=== PATIENT | female | born 1955 | race Caucasian/White ===

== ENCOUNTER 2016-10-15 19:05 | Emergency (ER) | payer BC ==
--- NOTE | 2016-10-15 20:17 | Emergency Department Record ---
History of Present Illness - General Chief Complaint: Cough Stated Complaint: CHEST CONGESTION Time Seen by Provider: 10/15/16 20:07 Source: Patient Mode of Arrival: Ambulatory Limitations: No limitations - History of Present Illness Initial Comments: pt has been sick for a month with ear infection for which she got antibiotics and has now developed a cough that is productive. she thinks she has bronchitis as she had it before. she thinks she had a fever this morning. she denies sob, body aches or other symptoms MD Complaint: Cough, Nasal congestion Onset/Timin -: Days(s) Consistency: Getting worse Improves With: Nothing Worsens With: Nothing Associated Symptoms: Cough, Fever - Related Data Previous Rx's Medication Instructions Recorded Azithromycin [Zithromax] 250 mg PO DAILY #4 tab 10/15/16 Benzonatate [Tessalon] 1 cap PO Q8H PRN #14 cap 10/15/16 Allergies Allergy/AdvReac Type Severity Reaction Status Date / Time Sulfa (Sulfonamide Allergy RASH Unverified 09/13/16 08:45 Antibiotics) Travel Screening - Travel/Exposure Within Last 30 Days Have you traveled within the last 30 days?: No Past Medical History - SOCIAL HISTORY Smoking Status: Never smoker Alcohol Use: None - RESPIRATORY Hx Respiratory Disorders: Yes Hx Bronchitis: Yes (hx) - CARDIOVASCULAR Hx Cardio Disorders: No - NEURO Hx Neuro Disorders: No - GI Hx GI Disorders: No - Hx Genitourinary Disorders: No - ENDOCRINE Hx Endocrine Disorders: No - MUSCULOSKELETAL Hx Musculoskeletal Disorders: No - PSYCH Hx Psych Problems: No - HEMATOLOGY/ONCOLOGY Hx Hematology/Oncology Disorders: No Family Medical History Any Significant Family History?: Yes Hx Diabetes: Brother/Sister Hx Heart Disease: Father Course Vital Signs 10/15/16 19:50 Temperature 99.7 F H Pulse Rate [ 101 H Pulse Ox Probe] Respiratory 18 Rate Blood Pressure 166/88 [Left Arm] Pulse Ox 93 L Medical Decision Making - Management Options MDM Management: Additional Work-up Planned (e.g. ADM/Transfer/OP Study) - Data Complexity MDM Data: X-Ray Ordered and/or Reviewed - Radiology Data Radiology results: Report reviewed, Image reviewed Disposition Disposition: Discharge Clinical Impression: Bronchitis Disposition: Home, Self-Care Condition: (1) Good Instructions: Acute Bronchitis (ED) Additional Instructions: follow uo with family doctor. return sooner if worse. Prescriptions: Benzonatate [Tessalon] 1 cap PO Q8H PRN #14 cap PRN Reason: Cough Azithromycin [Zithromax] 250 mg PO DAILY #4 tab Forms: Patient Portal Access
[2016-10-15] MEDS ORDERED: AZITHROMYCIN 500 MG TABLET PO ONE (20:50)
[2016-10-15] MEDS ORDERED: PROMETHAZINE W/CODEINE 10ML UD PO ONE ×2 (20:51→20:57)
--- NOTE | 2016-10-19 03:50 | Emergency Department Record ---
History of Present Illness - General Chief Complaint: Cough Stated Complaint: CHEST CONGESTION Time Seen by Provider: 10/15/16 20:07 Source: Patient Mode of Arrival: Ambulatory Limitations: No limitations - History of Present Illness Onset/Timin -: Days(s) Consistency: Getting worse Improves With: Nothing Worsens With: Nothing Associated Symptoms: Cough, Fever - Related Data Previous Rx's Medication Instructions Recorded Azithromycin [Zithromax] 250 mg PO DAILY #4 tab 10/15/16 Benzonatate [Tessalon] 1 cap PO Q8H PRN #14 cap 10/15/16 Allergies Allergy/AdvReac Type Severity Reaction Status Date / Time Sulfa (Sulfonamide Allergy RASH Unverified 09/13/16 08:45 Antibiotics) Travel Screening - Travel/Exposure Within Last 30 Days Have you traveled within the last 30 days?: No Review of Systems Reviewed: No additional complaints except as noted below Constitutional: Reports: As per HPI. Denies: Chills, Fever, Malaise, Night sweats, Weakness, Weight change Eyes: Reports: As per HPI. Denies: Eye discharge, Eye pain, Photophobia, Vision change ENT: Reports: As per HPI. Denies: Congestion, Dental pain, Ear pain, Epistaxis , Hearing loss, Throat pain Respiratory: Reports: As per HPI. Denies: Cough, Dyspnea, Hemoptysis, Stridor, Wheezes Cardiovascular: Reports: As per HPI. Denies: Arrhythmia, Chest pain, Dyspnea on exertion, Edema, Murmurs, Orthopnea, Palpitations, Paroxysmal nocturnal dyspnea, Rheumatic Fever, Syncope Endocrine: Reports: As per HPI. Denies: Fatigue, Heat or cold intolerance, Polydipsia, Polyuria Gastrointestinal: Reports: As per HPI. Denies: Abdominal pain, Constipation, Diarrhea, Hematemesis, Hematochezia, Melena, Nausea, Vomiting Genitourinary: Reports: As per HPI. Denies: Abnormal menses, Discharge, Dyspareunia, Dysuria, Frequency, Hematuria, Incontinence, Retention, Urgency Musculoskeletal: Reports: As per HPI. Denies: Arthralgia, Back pain, Gout, Joint swelling, Myalgia, Neck pain Skin: Reports: As per HPI. Denies: Bruising, Change in color, Change in hair/ nails, Lesions, Pruritus, Rash Neurological: Reports: As per HPI. Denies: Abnormal gait, Confusion, Headache, Numbness, Paresthesias, Seizure, Tingling, Tremors, Vertigo, Weakness Psychiatric: Reports: As per HPI. Denies: Anxiety, Auditory hallucinations, Depression, Homicidal thoughts, Suicidal thoughts, Visual hallucinations Hematological/Lymphatic: Reports: As per HPI. Denies: Anemia, Blood Clots, Easy bleeding, Easy bruising, Swollen glands Past Medical History - SOCIAL HISTORY Smoking Status: Never smoker Alcohol Use: None - RESPIRATORY Hx Respiratory Disorders: Yes Hx Bronchitis: Yes (hx) - CARDIOVASCULAR Hx Cardio Disorders: No - NEURO Hx Neuro Disorders: No - GI Hx GI Disorders: No - Hx Genitourinary Disorders: No - ENDOCRINE Hx Endocrine Disorders: No - MUSCULOSKELETAL Hx Musculoskeletal Disorders: No - PSYCH Hx Psych Problems: No - HEMATOLOGY/ONCOLOGY Hx Hematology/Oncology Disorders: No Family Medical History Any Significant Family History?: Yes Hx Diabetes: Brother/Sister Hx Heart Disease: Father Physical Exam - General General Appearance: Alert, Oriented x3, Cooperative, Mild distress Limitations: No limitations - Head Head exam: Normal inspection - Eye Eye exam: Normal appearance, PERRL, EOMI Pupils: Normal accommodation - ENT ENT exam: Normal exam, Mucous membranes moist, Normal external ear exam, Normal orophraynx Ear exam: Normal external inspection. negative: External canal tenderness Nasal Exam: Normal inspection. negative: Discharge, Sinus tenderness Mouth exam: Normal external inspection, Tongue normal Teeth exam: Normal inspection. negative: Dental caries Throat exam: Normal inspection. negative: Tonsillar erythema, Tonsillar exudate - Neck Neck exam: Normal inspection, Full ROM. negative: Tenderness - Respiratory Respiratory exam: Normal lung sounds bilaterally. negative: Respiratory distress - Cardiovascular Cardiovascular Exam: Regular rate, Normal rhythm, Normal heart sounds - GI/Abdominal GI/Abdominal exam: Soft, Normal bowel sounds. negative: Tenderness - Rectal Rectal exam: Deferred - exam: Deferred - Extremities Extremities exam: Normal inspection, Full ROM, Normal capillary refill. negative: Tenderness - Back Back exam: Reports: Normal inspection, Full ROM. Denies: Muscle spasm, Rash noted, Tenderness - Neurological Neurological exam: Alert, Normal gait, Oriented X3, Reflexes normal - Psychiatric Psychiatric exam: Normal affect, Normal mood - Skin Skin exam: Dry, Intact, Normal color, Warm Course Vital Signs 10/15/16 10/15/16 19:50 21:01 Temperature 99.7 F H Pulse Rate 96 H Pulse Rate [ 101 H Pulse Ox Probe] Respiratory 18 18 Rate Blood Pressure 166/88 [Left Arm] Pulse Ox 93 L 93 L Disposition Clinical Impression: Bronchitis Disposition: Home, Self-Care Condition: (1) Good Instructions: Acute Bronchitis (ED) Additional Instructions: follow uo with family doctor. return sooner if worse. Prescriptions: Benzonatate [Tessalon] 1 cap PO Q8H PRN #14 cap PRN Reason: Cough Azithromycin [Zithromax] 250 mg PO DAILY #4 tab Forms: Patient Portal Access
--- NOTE | 2016-10-19 07:35 | RADIOLOGY REPORT ---
EXAM: CHEST, TWO VIEWS HISTORY: ACUTE COUGH TIMES FOUR DAYS. TECHNIQUE: Two views of the chest were provided without comparison examination. FINDINGS: The cardiomediastinal silhouette is within normal limits for size and contour. The vianey appear unremarkable. There is no radiographic evidence of a focal infiltrate or pleural effusion. No pneumothorax is noted. IMPRESSION: NO RADIOGRAPHIC EVIDENCE OF AN ACUTE INTRATHORACIC PROCESS. JOB NUMBER: [id number] MTDD
== END 2016-10-15 21:01 | disposition home or self-care (01) ==
LOC: ER 19:05
DX: J20.9 Acute bronchitis, unspecified (principal)
CPT/HCPCS: 71020; 99283

== ENCOUNTER 2017-11-16 09:16 | Day surgery (SDC) | payer BC ==
[2017-11-16] MEDS ORDERED: PROPOFOL 10 MG/ML VIAL IV ONE (09:17)
[2017-11-16] MEDS ORDERED: LIDOCAINE 2% MDV (20MG/ML) 20ML VIAL IV ONE (09:17)
[2017-11-16] MEDS ORDERED: MIDAZOLAM HCL 2MG/2ML VIAL IV ONE (09:17)
--- NOTE | 2017-11-19 09:50 | Operative Note ---
DATE OF SURGERY: 11/16/2017 SURGEON: Kimberlyn Pineda MD OPERATION: COLONOSCOPY. INDICATIONS: This is a 62-year-old female with average risk for colorectal cancer who presented for screening colonoscopy. POSTOPERATIVE DIAGNOSES: 1. A 6 mm sessile polyp in the cecum that was removed by cold snare. 2. Otherwise normal colon. ANESTHESIA: Sedation is per Anesthesia. Pulse oximetry was monitored throughout the procedure to maintain O2 saturation of 90% or greater. Supplemental oxygen was administered via nasal cannula. Cardiac and vital signs were monitored throughout the duration of the procedure, and they were stable. The procedure of colonoscopy and risks and alternatives of the procedure, including the risk of bleeding and perforation, among others, were explained to the patient who voiced understanding and agreed to have the procedure done. Physical examination was performed, and the patient was found stable for sedation. PROCEDURE: The patient was placed in the left lateral position. Sedation was initiated. A digital rectal exam was performed and showed some mild external hemorrhoids with no palpable rectal masses. An Olympus PCF-180AL colonoscope was then inserted into the rectum under direct visualization. It was advanced to the cecum without difficulty. The ileocecal valve and appendiceal orifice were identified and photographed. The colonic mucosa was carefully examined upon introduction of the colonoscope. There were no lesions noted. In the cecum was a 6 mm sessile polyp that was noted and was removed by cold snare. The ileocecal valve was intubated and terminal ileal mucosa was inspected for about 10 cm and it appeared normal. The colonoscope was then withdrawn while carefully examining the colonic mucosal surfaces. No other lesions were noted. In the rectum, retroflexion was performed and grade 1 internal hemorrhoids were noted. The colonoscope was then withdrawn and the procedure was terminated. The patient tolerated the procedure well without any immediate complications. She remained with stable vital signs and was transferred to the recovery room. RECOMMENDATIONS: 1. We will follow up on the histology of the polyp. 2. The patient is to have a repeat colonoscopy in 3 or 5 years depending on the histology of the polyp. Thank you for allowing me to participate in the care of your patient. CC: GRETA Nolan
== END 2017-11-16 11:15 | disposition home or self-care (01) ==
LOC: HOP 09:16
PROVIDERS: ATTEND Internal Medicine Gastroenterology
DX: Z12.11 Encounter for screening for malignant neoplasm of colon (principal); D12.0 Benign neoplasm of cecum; E11.9 Type 2 diabetes mellitus without complications; Z79.84 Long term (current) use of oral hypoglycemic drugs; E78.00 Pure hypercholesterolemia, unspecified; I10 Essential (primary) hypertension

== ENCOUNTER 2018-07-02 08:06 | Day surgery (SDC) | payer BC ==
[~2018-07-02 08:06] MED LIST: ACETAMINOPHEN 1,000 MG/100 ML BTL IV ONE
[2018-07-02] MEDS ORDERED: FENTANYL PF 100MCG/2ML VIAL IV ONE (08:07)
[2018-07-02] MEDS ORDERED: LIDOCAINE 2% MDV (20MG/ML) 20ML VIAL IV ONE (08:07)
[2018-07-02] MEDS ORDERED: DEXAMETHASONE 4 MG/ML 1ML VIAL IVP ONE (08:07)
[2018-07-02] MEDS ORDERED: PROPOFOL 10 MG/ML VIAL IV ONE (08:07)
[2018-07-02] MEDS ORDERED: ONDANSETRON HCL IV 4 MG/2 ML VIAL IVP ONE (08:07)
[2018-07-02] MEDS ORDERED: DESFLURANE 240 ML BTL INH ONE (08:07)
[2018-07-02] MEDS ORDERED: MIDAZOLAM HCL 2MG/2ML VIAL IV ONE (08:07)
--- NOTE | 2018-07-03 15:10 | Operative Note ---
DATE OF SURGERY: 07/02/2018 Surgeon: Vijay Rowland DO PREOPERATIVE DIAGNOSES: 1. Carpal tunnel syndrome of the right wrist. 2. Trigger finger of the right index finger. 3. Trigger finger of the right ring finger. POSTOPERATIVE DIAGNOSES: 1. Carpal tunnel syndrome of the right wrist. 2. Trigger finger of the right index finger. 3. Trigger finger of the right ring finger. OPERATION: 1. Decompression of right median nerve at the wrist using 3.5 loop magnification. 2. Tenotomy A1 obi right index finger. 3. Tenotomy A1 obi right ring finger. DESCRIPTION OF PROCEDURE: This 62-year-old female was taken to the operating room and placed in the supine position on the operating room table. General anesthesia was induced. The right upper extremity was elevated. It was prepped with Hibiclens and draped in the usual sterile fashion. It was exsanguinated and the tourniquet inflated to 250 mmHg. A palmar incision was utilized following the hypothenar crease from the level of the base of the web space of the thumb to the flexor crease of the wrist. Dissection was carried down through the skin and subcutaneous tissue. Palmar fascia divided in line with the skin incision. The flexor retinaculum was identified, punctured, and split to its proximal margin. Then with the contents of the carpal tunnel under direct vision, the transverse carpal ligament was transected along its ulnar border. The radial flap was raised to expose the entire median nerve under the transverse carpal ligament. The recurrent motor branch of the median nerve was identified and found to be normal. The wound was irrigated and the wound subsequently closed with interrupted 6-0 nylon suture. We then directed our attention to the index finger, and a longitudinal incision was made in the palm of the hand overlying the 2nd metacarpal head and neck, and dissection was carried down through the skin and subcutaneous tissue. Total length of the incision approximately 1.5 cm. The proximal edge of the A1 obi was easily identified, and then it was incised from proximal to distal under direct vision to release the obi. The finger was taken through range of motion and no catching or locking of the finger was identified. The wound was irrigated and closed with interrupted 6-0 nylon suture. The ring finger was subsequently addressed by making a similar type of incision over the 4th metacarpal head and neck, and dissection was carried down through the skin and subcutaneous tissue. The proximal edge of the A1 obi was identified, and it was then incised from proximal to distal under direct vision. Once this had been completely decompressed, the finger was taken through range of motion and no catching or locking of the finger was identified. This wound was also irrigated and closed with interrupted 6-0 nylon suture. Sterile dressings were applied with a plaster splint immobilization with the wrist in slight dorsiflexion and the thumb in an adducted position. GROSS PATHOLOGY: This patient demonstrated mild hourglass deformity and hyperemia of the median nerve under the transverse carpal ligament. In addition, there was nodularity of the sublimis tendon of the index finger and ring finger but no defect or no disruption of the tendon fibers was identified in either index or ring finger. CC: EHSAN Montiel
== END 2018-07-02 11:45 | disposition home or self-care (01) ==
LOC: SUR 08:06
PROVIDERS: ATTEND Orthopaedic Surgery
DX: G56.01 Carpal tunnel syndrome, right upper limb (principal); M65.321 Trigger finger, right index finger; M65.341 Trigger finger, right ring finger; I10 Essential (primary) hypertension; E78.00 Pure hypercholesterolemia, unspecified; E11.9 Type 2 diabetes mellitus without complications
CPT/HCPCS: 64721; 64727; 26055 ×2; 01810; J2405; J3010

== ENCOUNTER 2019-03-27 08:14 | Day surgery (SDC) | payer BC ==
[~2019-03-27 08:14] MED LIST changes: -ACETAMINOPHEN 1,000 MG/100 ML BTL IV ONE; +ACETAMINOPHEN 1,000 MG/100 ML BTL IVPB ONE
[2019-03-27] MEDS ORDERED: FENTANYL PF 100MCG/2ML VIAL IV ONE (08:15)
[2019-03-27] MEDS ORDERED: MIDAZOLAM HCL 2MG/2ML VIAL IV ONE (08:15)
[2019-03-27] MEDS ORDERED: LIDOCAINE 2% MDV (20MG/ML) 20ML VIAL IV ONE (08:15)
[2019-03-27] MEDS ORDERED: KETOROLAC 30 MG/ML VIAL IVP ONE (08:15)
[2019-03-27] MEDS ORDERED: SEVOFLURANE 250 ML INH ONE (08:15)
[2019-03-27] MEDS ORDERED: PROPOFOL 10 MG/ML VIAL IV ONE (08:15)
[2019-03-27] MEDS ORDERED: ONDANSETRON HCL IV 4 MG/2 ML VIAL IVP ONE (08:15)
[2019-03-27] MEDS ORDERED: RINGERS SOLUTION,LACTATED 1,000 ML IV ONE (09:00)
--- NOTE | 2019-03-28 13:10 | Operative Note ---
DATE OF SURGERY: 03/27/2019 SURGEON: Vijay Rowland DO PREOPERATIVE DIAGNOSES: 1. Carpal tunnel syndrome of the left wrist. 2. Trigger finger of the left thumb. POSTOPERATIVE DIAGNOSES: 1. Carpal tunnel syndrome of the left wrist. 2. Trigger finger of the left thumb. OPERATION: 1. Decompression left median nerve of the wrist using 3.5 loop magnification. 2. Tenotomy A1 obi left thumb. DESCRIPTION OF PROCEDURE: This 63-year-old female was taken to the operating room and placed in the supine position on the operating room table. General anesthetic was administered. The left upper extremity was elevated, prepped with Hibiclens, and draped in the usual sterile fashion. It was exsanguinated and the tourniquet inflated to 250 mmHg. We addressed the thumb first by making a transverse incision in the flexor crease of the MCP joint of the left thumb on the volar surface of the thumb. Dissection was carried down through the skin and subcutaneous tissue. Neurovascular structures were identified and retracted safely out of the way to expose the A1 obi. This was then incised in line with the epithelial fibers. The tendon was then taken through range of motion and no clicking, catching, or locking of the thumb was identified. The tendon itself appeared to be grossly intact with small nodularity being noted within the tendon. This was not further disturbed. The wound was then copiously irrigated. Hemostasis obtained with the electrocautery. The wound closed with 6-0 nylon suture. We then directed our attention to the carpal tunnel. An incision was made following the hypothenar crease from the level of the base of the webspace of the thumb to the flexor crease of the wrist. Dissection was carried down through the skin and subcutaneous tissue. Hemostasis obtained with the electrocautery. The palmar fascia was divided in line with the skin incision. We then identified the flexor retinaculum, which was punctured and then split to its proximal margin. Then, with the contents of the carpal tunnel under direct vision, the transverse carpal ligament was transected along its ulnar border. The radial flap was raised to expose the entire median nerve under the transverse carpal ligament. The recurrent motor branch of the median nerve was identified and found to be intact. The nerve itself appeared to be grossly normal. With the nerve completely freed up, the tourniquet was released and hemostasis obtained with the electrocautery. The wound closed with interrupted 6-0 nylon suture. Sterile dressings were applied to both wounds with the wrist in slight dorsiflexion and the thumb in a slightly adducted position. GROSS PATHOLOGY: This patient had a nodularity of the FBL of the left thumb and the tendon was otherwise intact. With carpal tunnel decompression, the nerve was inspected and no gross pathology of the nerve was identified. The recurrent motor branch was seen to be normal. MTDD
== END 2019-03-27 12:00 | disposition home or self-care (01) ==
LOC: SUR 08:14
PROVIDERS: ATTEND Orthopaedic Surgery
DX: G56.02 Carpal tunnel syndrome, left upper limb (principal); M65.312 Trigger thumb, left thumb; I10 Essential (primary) hypertension; E78.00 Pure hypercholesterolemia, unspecified; E11.9 Type 2 diabetes mellitus without complications
CPT/HCPCS: J1885; J2405; J7120